=== PATIENT | female | born 1990 | race Caucasian/White ===

== ENCOUNTER → 2022-07-09 | Outpatient (CLI) | payer OTHER, SELFPAY ==
[2022-07-09 14:36] LABS: Absolute Lymphocyte Count 1.59 X10^3/uL (0.83-4.51); Absolute Neutrophil Count 5.6 X10^3/uL (2.0-7.7); Basophil# 0.03 X10^3/uL; Basophil% 0.4 % (0-1); Eosinophil# 0.07 X10^3/uL; Eosinophils% 0.9 % (0-5); Hemoglobin 12.8 g/dL (12.0-15.0); Lymphocyte # 1.59 X10^3/ul (0.83-4.51); Lymphocyte % 20.2 % (19-41); Mean Corp Hgb Conc 35.6 g/dL (32-36); Mean Corpuscular Hgb 30.1 pg (27.0-32.0); Mean Corpuscular Volume 84.7 fL (81-99); Mean Platelet Vol. 9.2 fl (6.2-12.0); Monocyte# 0.53 X10^3/uL; Monocyte% 6.7 % (0-10); NRBC Flagged by Analyzer 0 % (0-5); Neutrophil # 5.64 X10^3/uL (2.7-7.7); Neutrophil % 71.5 % (47-70); Platelet Count 220 K/mm3 (150-450); RBC Distribution Width CV 12.3 % (11.6-14.6); RBC Distribution Width SD 36.9 fl (35.1-43.9); Red Blood Count 4.25 M/mm3 (4.2-5.4); White Blood Count 7.9 K/mm3 (4.4-11.0)
[2022-07-09 15:04] LABS: NATERA MAILED SPECIMEN
[2022-07-09 16:35] LABS: HIV - WCH Non-Reactive (Nonreactive); Hepatitis B Surface Antigen Non-Reactive (Nonreactive); Hepatitis C Antibody Non-Reactive (Nonreactive); Rubella IgG Reactive (Nonreactive); Syphilis Antibodies Non-reactive
[2022-07-13 21:07] LABS: Chlamydia By Nucleic Acid AMP Negative (Negative)
[2022-07-14 16:48] LABS: Gonococcus By Nucleic Acid AMP Negative (Negative)
== END | disposition home or self-care (01) ==
PROVIDERS: Referring Provider Obstetrics & Gynecology; Visit Provider Obstetrics & Gynecology
DX: Z34.81 Encounter for supervision of other normal pregnancy, first trimester (principal); Z31.430 Encounter of female for testing for genetic disease carrier status for procreative management
CPT/HCPCS: 85025; 86703; 86762; 86780; 86803; 86850; 86900; 86901; 87086; 87088; 87340; 87491; 87591

== ENCOUNTER → 2022-10-28 | Outpatient (CLI) | payer OTHER, SELFPAY ==
[2022-10-28 08:25] LABS: Absolute Lymphocyte Count 1.39 X10^3/uL (0.83-4.51); Absolute Neutrophil Count 7.5 X10^3/uL (2.0-7.7); Basophil# 0.02 X10^3/uL; Basophil% 0.2 % (0-1); Hematocrit 33.2 % (37-47); Hemoglobin 11.1 g/dL (12.0-15.0); Lymphocyte # 1.39 X10^3/ul (0.83-4.51); Lymphocyte % 14.4 % (19-41); Mean Corp Hgb Conc 33.4 g/dL (32-36); Mean Corpuscular Hgb 30.7 pg (27.0-32.0); Mean Platelet Vol. 9.4 fl (6.2-12.0); Monocyte# 0.58 X10^3/uL; NRBC Flagged by Analyzer 0 % (0-5); Neutrophil # 7.48 X10^3/uL (2.7-7.7); Neutrophil % 77.8 % (47-70); Platelet Count 205 K/mm3 (150-450); RBC Distribution Width CV 12.6 % (11.6-14.6); RBC Distribution Width SD 41.8 fl (35.1-43.9); Red Blood Count 3.61 M/mm3 (4.2-5.4); White Blood Count 9.6 K/mm3 (4.4-11.0)
[2022-10-28 08:36] LABS: Glucose Challenge Gest 1H 50g 100 mg/dL (70-140)
[2022-10-28 09:22] LABS: HIV - WCH Non-Reactive (Nonreactive); Syphilis Antibodies Non-reactive
== END | disposition home or self-care (01) ==
LOC: LAB 07:54
PROVIDERS: Referring Provider Nurse Practitioner Women's Health; Visit Provider Nurse Practitioner Women's Health
DX: Z34.90 Encounter for supervision of normal pregnancy, unspecified, unspecified trimester (principal)
CPT/HCPCS: 36415; 82950; 85025; 86703; 86780

== ENCOUNTER → 2023-01-13 | Outpatient (CLI) | payer OTHER, SELFPAY | END | disposition home or self-care (01) | LOC: LABSPEC 13:41 | PROVIDERS: Referring Provider Registered Nurse; Visit Provider Registered Nurse | DX: Z34.00 Encounter for supervision of normal first pregnancy, unspecified trimester (principal) | CPT/HCPCS: 87081 ==

== ENCOUNTER 2023-01-26 21:57 | Inpatient (IN) | payer OTHER, SELFPAY ==
[2023-01-26] VITALS (16 sets, daily range): BP systolic 141–186; BP diastolic 70–103; PULSE 60–106; TEMP 36.8–36.9; O2SAT 98–100; BMI 33.7
[2023-01-26] MEDS: NIFEdipine 10 MG Capsule PO (22:12)
[2023-01-26] MEDS: LACTATED RINGERS 500 ML 999 ML IV (22:30)
[2023-01-26 22:41] LABS: Absolute Neutrophil Count 13.5 X10^3/uL (2.0-7.7); Basophil# 0.04 X10^3/uL; Basophil% 0.2 % (0-1); Eosinophil# 0.04 X10^3/uL; Eosinophils% 0.2 % (0-5); Hematocrit 35.8 % (37-47); Hemoglobin 12.1 g/dL (12.0-15.0); Lymphocyte % 9.8 % (19-41); Mean Corp Hgb Conc 33.8 g/dL (32-36); Mean Corpuscular Hgb 30.6 pg (27.0-32.0); Mean Corpuscular Volume 90.6 fL (81-99); Mean Platelet Vol. 9.8 fl (6.2-12.0); Monocyte# 1.03 X10^3/uL; Monocyte% 6.3 % (0-10); NRBC Flagged by Analyzer 0 % (0-5); Neutrophil # 13.47 X10^3/uL (2.7-7.7); Platelet Count 238 K/mm3 (150-450); RBC Distribution Width CV 12.6 % (11.6-14.6); RBC Distribution Width SD 41.3 fl (35.1-43.9); Red Blood Count 3.95 M/mm3 (4.2-5.4); White Blood Count 16.3 K/mm3 (4.4-11.0)
[2023-01-26 22:49] LABS: AST(SGOT) 29 U/L (15-37); Alanine Aminotransfer ALT/SGPT 22 U/L (13-56); Creatinine, Serum 0.76 mg/dL (0.55-1.02); EST Glomerular Filtration Rate 94 mL/min (>60); Est Glom Filt Rate - Afr Amer 114 mL/min (>60); Estimated Creatinine Clearance 101.33 ml/min; Uric Acid 6.1 mg/dL (2.6-6.0)
[2023-01-26 23:00] LABS: ROM Internal Control Test YES-OK TO RESULT pt. (Internal QC); Record Kit Lot#, ROM+ K1374
[2023-01-26] MEDS: Lactated Ringers 1,000 ML 200 ML IV (23:00)
[2023-01-26 23:02] LABS: ROM Patient Test POSITIVE (Negative)
[2023-01-26 23:20] LABS: Syphilis Antibodies Non-reactive
[2023-01-26 23:31] LABS: Protein, Urine (Random) 25.8 mg/dL (<11.9); Protein:Creat Ratio 208 mg/g CRE (0-200)
[2023-01-27] VITALS (93 sets, daily range): BP systolic 94–179; BP diastolic 47–85; PULSE 33–156; RESP 15–18; TEMP 35.8–37.5; O2SAT 81–100
[2023-01-27] MEDS: Labetalol (Prefilled) 20 MG/4 ML IV (01:30)
[2023-01-27] MEDS: Labetalol (Prefilled) 20 MG/4 ML 40 MG IV (01:46)
--- NOTE | 2023-01-27 02:16 | HP.PCM.OB_ITS ---
HPI - General General Date of Admission: 01/27/23 HPI Narrative SAMI HEALY, is a 32 y/o @ 38 weeks 6 days who presents to L&D with painful contractions. She states that her membranes were stripped by Yessica Patrick CNP in the office today and she lost a mucous plug. ROM + was positive but she did not have a large gush of fluid at home. Her BP's were found to be in the severe range and she is breathing through contractions unable to finish a complete sentence. Maternal Data Information EDY Calculator Estimated Delivery Date Method Current WG Current Estimate 02/04/23 LMP (Certain) 38w 6d Other Estimates 02/04/23 Ultrasound #1 38w 6d PFSH PFSH Medical History Hx of fracture of humerus Home Medications multivitamin no.47-iron fum 27 mg-folate no.1 1 mg-dha 300 mg capsule (PNV-DHA) 1 cap PO 06/25/22 [History Last Taken 01/25/23] evening primrose oil 500 mg capsule 500 mg PO DAILY 01/26/23 [History Last Taken Unknown] Allergy/AdvReac Type Severity Reaction Status Date / Time No Known Allergies Allergy Verified 01/26/23 23:50 Surgical History Hx of wisdom tooth extraction Social History adopted: No household members: spouse housing: house current occupational status: employed 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 current occupational exposures/hazards: Yes pets and animals: No history of recent travel: Yes details: [place], [place] & going to [facility] out of state: No out of country: Yes sexually active: Yes Smoking Status: Never smoker alcohol intake: former details: socially not while substance use type: does not use well-balanced diet: daily or most days caffeine: Yes Type: coffee Number of servings: 1 eating out: 1-3 times/week during the past year weight has: remained stable what type of physical activity do you participate in: running and weight training frequency: 3-4 times per week duration: 45-60 minutes/day boris/methodist: Mu-Ism seatbelt use: always do you feel safe at home: Yes additional social history: Tim- [employer] 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 History 1 Elective abortions Hx Para 0 Spontaneous abortions Hx # Term Pregnancies Ectopic pregnancies Hx # Pregnancies Multiple births # of living children Visit Details Expected Delivery Route/Plan Labor Preferences- CB/BF classes: encouraged.signed up for all 3 labor support person: Tim labor intervention preferences: [] pain management options preferred: limited but ok if epidural needed cut cord/dad catch: yes : yes PP control planned: discussed possible routes of delivery and associated risks: [] special requests: [] Plans Covid status: discussed Flu vaccine: declined Tdap vaccine: obtained Rhogam:NA LARC form signed: yes Problem list reviewed and updated with the most current plan of care details and appropriate orders placed. Relevant counseling for the gestational age provided. Continue routine care and follow up unless otherwise noted in visit notes/problem list details OB Flowsheet Initial Weight: 167 lb Date -?-?-?-?-?-?-?-?-?-?-?-?- EGA Weight BP Urine Prot -?-?-?-?-?-?-?-?-?-?-?-?- Glucose FHR FuHt Pres Dilation -?-?-?-?-?-?-?-?-?-?-?-?- Effaced St Visit Note 07/09/22 -?-?-?-?-?-?-?-?-?--?-?-?- 10w 0d 167 lb 8 oz (+8 oz) 149/82 -?-?-?-?-?-?-?-?-?-?-?-?- 179 -?-?-?-?-?-?-?-?-?-?-?-?- JV-single live I UP measuring 10 weeks 0 days. desires NIPT. 08/03/22 -?-?-?-?-?-?-?-?-?-?-?-?- 13w 4d 172 lb 4 oz (+5 lb 4 oz) 137/82 -?-?-?-?-?-?-?-?-?-?-?--?- 160 -?-?-?-?-?-?-?-?-?-?-?-?- SM- no vb lof cr amping 09/01/22 -?-?-?-?-?-?-?-?-?-?-?-?- 17w 5d 173 lb (+6 lb) 124/82 Negative -?-?-?-?-?-?-?-?-?-?-?-?- Negative 163 -?-?-?-?-?-?-?-?-?-?-?-?- MH-No VB or cram ping. Doing well 09/28/22 -?-?-?-?-?-?-?-?-?-?-?-?- 21w 4d 178 lb 6 oz (+11 lb 6 oz) 120/70 Negative -?-?-?-?-?-?-?-?-?-?-?-?- Negative 154 -?-?-?-?-?-?-?-?-?-?-?--?- MH-No VB. Feels well. Feeling movement. 10/28/22 -?-?-?-?-?-?-?-?-?-?-?-?- 25w 6d 185 lb 6 oz (+18 lb 6 oz) 132/76 -?-?-?-?-?-?-?-?-?-?-?-?- 145 26 -?-?-?-?-?-?-?-?-?-?-?-?- SM- no vb lof go od fm no reuglar ctx cbc gct today 11/24/22 -?-?-?-?-?-?-?-?-?-?-?-?- 29w 5d 191 lb 2 oz (+24 lb 2 oz) 133/83 Negative -?-?-?-?-?-?-?-?-?-?-?-?- Negative 150 29 -?-?-?-?-?-?-?-?-?-?-?-?- LC- no lof/ctx/v b/ good fm. passed glucose. normal 28 week labs. desires breast pump. tdap and larc completed today 12/15/22 -?-?-?-?-?-?-?-?-?-?-?-?- 32w 5d 198 lb 4 oz (+31 lb 4 oz) 124/72 Negative -?-?-?-?-?-?-?-?-?-?-?-?- Negative 145 33 Cephalic -?-?-?-?-?-?-?-?-?-?-?-?- JV-no lof, vagin al bleeding, or dec fm. naming baby Samuel Rain 12/30/22 -?-?-?-?-?-?-?-?-?-?-?-?- 34w 6d 201 lb 2 oz (+34 lb 2 oz) 116/79 Negative -?-?-?-?-?-?-?-?-?-?--?-?- Negative 138 34 -?-?-?-?-?-?-?-?-?-?-?-?- LC- no lof/vb/ct x. good fm,no concerns today. reviewed using EPO at 36 weeks. 01/13/23 -?-?--?-?-?-?-?-?-?-?-?-?- 36w 6d 203 lb 4 oz (+36 lb 4 oz) 118/81 Negative -?-?-?-?-?-?-?-?-?-?-?-?- Negative 140 36 Cephalic -?-?--?-?-?-?-?-?-?-?-?-?- LC- no lof/vb/ct x. good fm. no concerns. vtx confirm via handheld us at bedside. gbs collected today. 01/20/23 -?-?-?-?-?-?-?-?-?-?-?-?- 37w 6d 208 lb (+41 lb) 121/83 Trace -?-?-?-?-?-?-?-?-?-?-?-?- Negative 140 37 Cephalic -?-?-?-?-?-?-?-?-?-?-?-?- LC- no lof/ctx/v b. good fm. gbs negative. no concerns today LC- no lof/ctx/vb. good fm. gbs negative. no concerns today. declines vaginal exam 01/26/23 -?-?-?-?-?-?-?-?-?-?-?-?- 38w 5d 208 lb (+41 lb) 123/85 Trace -?-?-?-?-?-?-?-?-?-?-?-?- Negative 135 38 Cephalic 2 -?-?-?-?-?-?-?-?-?-?-?-?- 70 -1 KW- no lof /vb/cramping. good FM. no concerns today ROS Constitutional Constitutional: Denies change in weight, fatigue, fever(s), headache(s), poor appetite or weakness Eyes Eyes: Denies blurry vision, change in vision, seeing flashes or spots in vision ENT HEENT: Denies dizziness, headache(s), loss taste/smell or sore throat Cardiovascular Cardiovascular: Denies chest pain, dizziness, dyspnea, irregular heart rhythm, leg edema, palpitations, rapid heart rate or vomiting Respiratory/Chest Respiratory/Chest: Denies chest tightness, cough, dyspnea or breast pain Gastrointestinal Gastrointestinal: Denies abdominal pain, anorexia, constipation, cramping, diarrhea, hemorrhoids, vomiting or weight changes Genitourinary Genitourinary: Denies dysuria, flank pain, genital lesions, genital pain, urinary frequency or urinary urgency Musculoskeletal Musculoskeletal: Denies back pain, difficulty walking, joint pain, limited range of motion, muscle cramps or numbness Integumentary Integumentary: Denies lesions or unusual bruising Neurologic Neurologic: Denies abnormal movements, abnormal speech, dizziness, numbness, seizure-like activity or syncope Psychiatric Psychiatric: Denies anxiety, behavioral changes, change in appetite, change in libido, cognitive impairment, confusion, depression, difficulty concentrating, hallucinations or suicidal thoughts Endocrine Endocrinology: Denies excessive sweating, polydipsia or polyuria Hematologic/Lymphatic Hematologic/Lymphatic: Denies easy bleeding, easy bruising or lymphadenopathy Allergic/Immunologic Allergic/Immunologic: Denies itchy eyes, lip swelling, seasonal rhinorrhea, rhinitis, throat swelling, tongue swelling, eczemia, wheezing or asthma Vital Signs Vital Signs Vital Signs: 01/26/23 21:45 01/26/23 21:45 01/26/23 21:45 Temperature Temperature Source Pulse Rate 63 Blood Pressure 186/100 H BP Systolic 186 BP Diastolic 100 Pulse Ox 99 08/16/23 21:50 01/26/23 21:50 01/26/23 21:50 Temperature Temperature Source Temporal Pulse Rate 66 Blood Pressure BP Systolic BP Diastolic Pulse Ox 100 01/26/23 21:50 01/26/23 21:50 01/26/23 21:55 Temperature 98.3 F Temperature Source Pulse Rate Blood Pressure 183/101 H BP Systolic 183 BP Diastolic 101 Pulse Ox 99 01/26/23 21:55 01/26/23 22:00 01/26/23 22:00 Temperature Temperature Source Pulse Rate 68 67 Blood Pressure 185/103 H BP Systolic 185 BP Diastolic 103 Pulse Ox 01/26/23 22:02 01/26/23 22:02 01/26/23 22:34 Temperature Temperature Source Pulse Rate 60 Blood Pressure 148/70 H 141/83 H BP Systolic 148 141 BP Diastolic 70 83 Pulse Ox 01/26/23 22:34 01/26/23 23:09 01/26/23 23:09 Temperature Temperature Source Pulse Rate 67 75 Blood Pressure 158/74 H BP Systolic 158 BP Diastolic 74 Pulse Ox 01/26/23 23:17 01/26/23 23:17 01/26/23 23:16 Temperature Temperature Source Temporal Pulse Rate 68 Blood Pressure 146/77 H BP Systolic 146 BP Diastolic 77 Pulse Ox 01/26/23 23:16 01/26/23 23:24 01/26/23 23:24 Temperature 98.5 F Temperature Source Pulse Rate 106 H Blood Pressure BP Systolic BP Diastolic Pulse Ox 98 01/26/23 23:29 01/26/23 23:29 01/26/23 23:34 Temperature Temperature Source Pulse Rate 83 84 Blood Pressure BP Systolic BP Diastolic Pulse Ox 99 01/26/23 23:34 01/26/23 23:39 01/26/23 23:39 Temperature Temperature Source Pulse Rate 84 Blood Pressure BP Systolic BP Diastolic Pulse Ox 99 99 01/26/23 23:44 01/26/23 23:44 01/26/23 23:44 Temperature Temperature Source Pulse Rate 73 81 Blood Pressure 177/84 H BP Systolic 177 BP Diastolic 84 Pulse Ox 01/26/23 23:44 01/26/23 23:49 01/26/23 23:49 Temperature Temperature Source Pulse Rate 87 Blood Pressure BP Systolic BP Diastolic Pulse Ox 100 100 01/26/23 23:54 01/26/23 23:54 01/27/23 00:00 Temperature Temperature Source Pulse Rate 81 Blood Pressure 156/70 H BP Systolic 156 BP Diastolic 70 Pulse Ox 99 01/27/23 00:00 01/27/23 00:32 01/27/23 00:32 Temperature Temperature Source Pulse Rate 76 71 Blood Pressure 150/83 H BP Systolic 150 BP Diastolic 83 Pulse Ox 01/27/23 01:05 01/27/23 01:05 01/27/23 01:22 Temperature Temperature Source Pulse Rate 77 Blood Pressure 179/79 H 175/81 H BP Systolic 179 175 BP Diastolic 79 81 Pulse Ox 01/27/23 01:22 01/27/23 01:30 01/27/23 01:30 Temperature Temperature Source Pulse Rate 71 69 Blood Pressure BP Systolic BP Diastolic Pulse Ox 100 01/27/23 01:35 01/27/23 01:35 01/27/23 01:05 Temperature Temperature Source Temporal Pulse Rate 75 Blood Pressure BP Systolic BP Diastolic Pulse Ox 99 01/27/23 01:05 01/27/23 01:40 01/27/23 01:40 Temperature 97.1 F L Temperature Source Pulse Rate 72 Blood Pressure BP Systolic BP Diastolic Pulse Ox 98 01/27/23 01:44 01/27/23 01:44 01/27/23 01:45 Temperature Temperature Source Pulse Rate 73 79 Blood Pressure 162/85 H BP Systolic 162 BP Diastolic 85 Pulse Ox 01/27/23 01:45 01/27/23 01:50 01/27/23 01:50 Temperature Temperature Source Pulse Rate 76 Blood Pressure BP Systolic BP Diastolic Pulse Ox 99 100 01/27/23 01:54 01/27/23 01:54 01/27/23 02:00 Temperature 98.2 F Temperature Source Temporal Pulse Rate Blood Pressure 148/80 H BP Systolic 148 BP Diastolic 80 Pulse Ox 01/27/23 02:00 01/27/23 02:10 01/27/23 02:10 Temperature Temperature Source Pulse Rate 68 65 Blood Pressure 141/63 H BP Systolic 141 BP Diastolic 63 Pulse Ox Weight Weight: 208 lb 15.971 oz Body Mass Index (BMI) 33.7 Physical Exam Const alert, oriented x3, no apparent distress and healthy appearing General Appearance: cooperative; Negative for anxious HEENT normocephalic Face and Sinus: normal facial exam Eyes EOMs intact bilaterally and no scleral icterus General Eye: normal appearance of both eyes Neck full ROM and supple Lymph Lymphatic: no lymphadenopathy noted Chest Chest: abnormal inspection of the chest Resp normal respiratory effort Effort and Inspection: able to speak in complete sentences Cardio regular rate GI soft to palpation and non-tender Inspection: gravid Palpation: soft; Negative for tender external exam normal Amniotic Fluid: ROM+plus Back/Spine no CVA tenderness Extremity normal to inspection, full ROM and no clubbing, cyanosis or edema General Extremity: Negative for calf tenderness or edema Skin Lesions: no lesions Rashes: no rashes Psych mental status grossly normal Labs Labs Labs: Blood Type A POSITIVE Antibody Screen NEGATIVE Hct 35.8 % (37-47) L Hgb 12.1 g/dL (12.0-15.0) Syphilis Total Ab Non-reactive Rubella IgG Antibody Reactive (Nonreactive) Hep Bs Antigen Non-Reactive (Nonreactive) Chlamydia DNA (MODE) Negative (Negative) Neisseria gonorrhoeae DNA (MODE) Negative (Negative) HIV 1&2 Antibody Non-Reactive (Nonreactive) Glucose 1 Hr 50 gm 100 mg/dL (70-140) Assessment & Plan (1) Supervision of normal first : COMMENT: PRR , EDY 02/04/23 girl Tim (2) : QUALIFIERS: Weeks of gestation: 38 weeks Qualified Code(s): Z3A.38 - 38 weeks gestation of COMMENT: GBS negative. NIPT low risk, carrier testing neg. 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 Pain management: undecided GBS negative. Management of any complications: none start hypertensive protocol now pih labs shows normal prot:cr, but uric acid is elevated at 6.1. all other labs are normal. I have reviewed the [facility] and made any clinically relevant updates.
--- NOTE | 2023-01-27 02:21 | PN_ITS ---
Progress Note nursing has called multiple times to report severe level blood pressures. She most recently received 20 mg of labetalol bringing her pressure down to 141/63. Discussion with patient at bedside to discuss starting magnesium sulfate vs trying an epidural to decide if the pressures are secondary to pain. We discussed risks of abruption and stroke and patient is now willing to try the epidural. current tracing: FHT: mild to Moderate variability at times with accelerations and no decelerations category II tracing [place]: q1-3min Contractions A/P: active labor, severe level blood pressures -for epidural now and if no improvement in blood pressures plan is to start magnesium sulfate
[2023-01-27] MEDS: fentaNYL-bupivacaine (epidural) 100 ML BAG EPIDURAL ×3 (03:06→12:17)
[2023-01-27] MEDS: LACTATED RINGERS 500 ML 999 ML IV (04:29)
[2023-01-27] MEDS: Lactated Ringers 1,000 ML 200 ML IV ×2 (04:33→12:13)
--- NOTE | 2023-01-27 05:54 | PN_ITS ---
Progress Note pt is comfortable with epidural. at around 3:40 she started having late decelerations. When I entered the room nurses were attempting hands/ knees. She consented to insertion of internal monitors. current tracing: FHT: minimal to Moderate variability at times, intermittent late decelerations. on variable deceleration at 5:30 and a late deceleration at 5:53 following a double contraction. [place]: q3 min Contractions internal monitors placed., FHT acceleration noted with scalp stimulation. cx: 7/80/0 with a small area at the anterior lip that is swelling. reviewed tracing abnormalities since last note: improved overall since the 3:30- 4:30 hour. A/P: severe level blood pressures - improved with epidural FHT at times shows late declerations and other times shows moderate variability with accelerations. plan to observe cautiously. Discussion with patient that there is the possibility of abruption due to her severe blood pressure elevations earlier in the morning and if the decelerations become persistent again, primary section will be necessity to expedite delivery.
[2023-01-27] MEDS: Oxytocin 15 Units/NS 250ml 15 UNITS/250 ML IV.SOLN IV (08:12)
[2023-01-27] MEDS: Carboprost Tromethamine 250 MCG/ML Ampul IM (12:53)
[2023-01-27] MEDS: Oxytocin 15 Units/NS 250ml 15 UNITS/250 ML IV.SOLN 83 UNITS IV (13:18)
[2023-01-27] MEDS: Ondansetron 4 MG/2 ML Vial IV (13:24)
[2023-01-27] MEDS: Naproxen 500 MG Tablet PO (17:06)
--- NOTE | 2023-01-27 18:32 | OP.PCM_ITS ---
Assessment & Plan (1) Supervision of normal first : COMMENT: PRR , EDY 02/04/23 girl Tim (2) : QUALIFIERS: Weeks of gestation: 38 weeks Qualified Code(s): Z3A.38 - 38 weeks gestation of COMMENT: GBS negative. NIPT low risk, carrier testing neg. 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, anatomy nl Maternal Data Information EDY Calculator Estimated Delivery Date Method Current WG Current Estimate 02/04/23 LMP (Certain) 38w 6d Other Estimates 02/04/23 Ultrasound #1 38w 6d Vaginal Delivery Operative Information Date of Procedure: 01/27/23 Pre-Operative Diagnosis: see a/p diagnoses Post-Operative Diagnosis: same Surgery / Procedure Performed: Spontaneous Vaginal Delivery Type of Anesthesia: Epidural Special Medications: none Estimated Blood Loss: 200 Fluids Replaced: crystalloid Findings Description of Procedure: Patient began pushing and delivered the head in the NATHANAEL presentation. The head was delivered atraumatically. The anterior and posterior shoulders delivered without complication followed by the rest of the and the was placed on the maternal abdomen. Delayed cord clamping was employed for approximately 60 seconds. Cord was clamped and cut and gentle traction was applied to the cord and the placenta delivered spontaneously immediately following it was noted to be intact with three-vessel cord. The perineum and vagina were inspected and noted to have a second degree perineal laceration which was repaired in the usual fashion with 3-0 vicryl rapide. . EBL was 300 cc. Patient and infant tolerated delivery well. Amniotic Fluid Description: Thick meconium Placental Delivery Description: Spontaneous Placenta Disposition: [facility] Cord Vessel Description: 3 Vessels Cord Entanglement: None Delayed Cord Clamping: No Post Vaginal Delivery Medications Given After Delivery: IV Pitocin Episiotomy Description: None Complication Complications: None Procedures Urinary/Genital [id number]: [id number] Vaginal Delivery [facility]
[2023-01-27] MEDS: 0.9% Saline Lock 10 ML Syringe IV (18:35)
--- NOTE | 2023-01-27 18:36 | DCINST_ITS ---
Discharge Instructions Diet Discharge Diet: No restrictions Activity Discharge Activity: Return to Normal Activity, May Not Drive (while taking narcotic pain medications.) and May Shower May resume sexual activity in: 4-6 weeks Dressing / Incision Call your doctor if your incision/area has: Continuous Slow Oozing, Sudden Increased Bleeding, Increased Pain/ Swelling, Increased Redness and Foul Smelling Discharge Follow Up Care Please Follow Up With: Cassidy Sanchez MD When: Call [phone] to make an appointment with your doctor in 6 weeks. If you had elevated blood pressure or 4th degree laceration, you will need to be seen in 2 weeks. Test Results: Test results from this visit will be discussed in further detail at your follow- up appointment, if applicable. Discharge Plan Admission Admit Date/Time: 01/26/23 21:57 Attending Provider: Cassidy Sanchez Primary Care Provider: Care Physician,Martha Primary Discharge Orders/Prescriptions Prescriptions: No Action PNV-DHA 27 mg iron-1 mg -300 mg capsule 1 cap PO evening primrose oil 500 mg capsule 500 mg PO DAILY Rx Instructions: give with meal/snack Referrals / Follow Up: Care Physician,No Primary [Primary Care Provider] - Disposition Disposition (needs filled in before D/C Order can be placed): Home, Self Care
[2023-01-28 00:56] VITALS: BP 124/67; PULSE 69; RESP 16
[2023-01-28] MEDS: Naproxen 500 MG Tablet PO ×2 (01:04→10:06)
[2023-01-28 04:53] VITALS: BP 139/79; PULSE 72; RESP 15
--- NOTE | 2023-01-28 07:11 | PCM.PN.OB ---
Subjective Subjective Patient doing well without complaints. Tolerating PO. Ambulating and voiding without difficulty. feeding well. Denies chest pain, shortness of breath, calf pain/swelling, fevers, chills, lightheadedness. Objective Data Objective Data Vital Signs: Vital Signs Temp Pulse Resp BP Pulse Ox O2 Del Method 98.2 F 72 15 139/79 H 83 Room Air 01/27/23 18:31 01/28/23 04:53 01/28/23 04:53 01/28/23 04:53 01/27/23 15:20 01/28/23 04:53 Oxygen Delivery Method Room Air Weight: 208 lb 15.971 oz Body Mass Index (BMI) 33.7 Intake & Output: Intake and Output for Last 24 Hours 01/26/23 01/27/23 01/28/23 23:59 23:59 23:59 Intake Total 500 / 500 3041.30 / 3041.30 Output Total 1950 / 1950 Balance 500 / 500 1091.30 / 1091.30 Lab / Micro Data 01/26/23 22:10 01/26/23 22:10 ROS Constitutional Constitutional: Reports systems reviewed and no addt'l complaints, except as documented Cardiovascular Cardiovascular: Reports systems reviewed and no addt'l complaints, except as documented Respiratory/Chest Respiratory/Chest: Reports systems reviewed and no addt'l complaints, except as documented Gastrointestinal Gastrointestinal: Reports systems reviewed and no addt'l complaints, except as documented Physical Exam Const alert, oriented x3 and no apparent distress HEENT Head and Scalp: atraumatic Resp normal respiratory effort GI soft to palpation and non-tender Bimanual Exam - Vag & Uterus: uterus non-tender Uterus Palpation: uterus fundus firm (below Umbilicus) Assessment & Plan (1) Vaginal delivery: COMMENT: sm IAL girl Val 38 PLAN: Plan s/p PPD # 1 1. routine post delivery care 2. breast feeding- support given 3. rh positive 4. rubella immune
[2023-01-28 08:00] VITALS: BP 123/55; PULSE 81; RESP 15; TEMP 36.5; O2SAT 98
[2023-01-28 11:52] VITALS: BP 130/60; PULSE 89; RESP 15; TEMP 36.9; O2SAT 98
== END 2023-01-28 16:47 | disposition home or self-care (01) | DRG 807 ==
LOC: WPOUT 21:57 → WP 21:57
PROVIDERS: Obstetrics & Gynecology; Admitting Provider Obstetrics & Gynecology; Referring Provider Obstetrics & Gynecology; Visit Provider Obstetrics & Gynecology
DX: O76 Abnormality in fetal heart rate and rhythm complicating labor and delivery (principal); Z37.0 Single live birth; O13.4 Gestational [pregnancy-induced] hypertension without significant proteinuria, complicating childbirth; O70.1 Second degree perineal laceration during delivery; O77.0 Labor and delivery complicated by meconium in amniotic fluid; Z3A.38 38 weeks gestation of pregnancy
CPT/HCPCS: 59025; 59050; 82565; 82570; 84112; 84156; 84450; 84460; 84550; 85025; 86780; 86850; 86900; 86901; 99221; J7120; A4216; G0378; J2405